=== PATIENT | male | born 1945 | race Caucasian/White ===

== ENCOUNTER 2025-06-05 13:38 | Emergency (ER) | payer OTHER, MEDICARE ==
[~2025-06-05] VITALS: Ht 167.6 cm; Wt 106.5 kg
--- NOTE | ~2025-06-05 | EKG ---
[facility] [address] [place], [place] [address] Draft EK completed, results pending confirmation PATIENT NAME: ELYSIA BRADSHAW Electrocardiogram DATE OF : 45 PHYSICIAN: PRELIMINARY REPORT #: [id number] REPORT IS CONFIDENTIAL AND NOT TO BE RELEASED WITHOUT AUTHORIZATION
[2025-06-05] MEDS ORDERED: ASPIRIN81 MG PO (14:10)
[2025-06-05] MEDS ORDERED: LIPITOR40 MG PO (14:10)
[2025-06-05] MEDS ORDERED: TORSEMIDE20 MG PO (14:10)
[2025-06-05] MEDS ORDERED: ALLOPURINOL100 MG PO (14:11)
[2025-06-05] MEDS ORDERED: METOPROLOL SUCC25 MG PO (14:11)
[2025-06-05] MEDS ORDERED: CALCITRIOL0.5 MCG PO (14:12)
[2025-06-05 14:20] LABS: BASOPHILS 0.5 % (0.2-1.2); EOSINOPHILS 1.7 % (0.8-7.0); LYMPHOCYTES 6.5 % (21.8-53.1); MCH 30.2 PG (25.7-32.2); MCHC 30.3 g/dL (32.3-36.5); MCV 99.7 fL (79.0-92.2); MONOCYTES 7.6 % (5.3-12.2); NEUTROPHILS 82.7 % (34.0-67.9); RBC 2.91 M/uL (4.63-6.08)
[2025-06-05 14:44] LABS: ALT (SGPT) 10.0 U/L (14-59); AST (SGOT) 10.0 U/L (15-37); GLOMERULAR FILTRATION RATE,EST 13.0 mL/min (>60); PROTEIN, TOTAL 6.8 g/dL (6.4-8.2); UREA NITROGEN 26.0 mg/dL (7-18)
--- OUTSIDE RECORDS SUMMARY | 2025-06-05 16:09 | XMS ---
PreManage Notification: ELYSIA BRADSHAW [employer] Events No recent Security Events currently on file CRITERIA MET - [facility] - 2 Visits in 30 Days CARE PROVIDERS There are no care providers on record at this time. [facility]age has no Care Guidelines for this patient. Bridget VISIT COUNT (12 MO.) [address] [facility] NOTE: Visits indicate total known visits. ED/C VISIT TRACKING (12 MO.) [facility] COMPLAINT: - SYNCOPE 06/04/2025 10:22 [facility] [place] TYPE: Emergency DIAGNOSES: - Other chest pain - Other specified abnormal findings of blood chemistry - CHEST PAIN 05/17/2025 10:17 [facility] [place] TYPE: Emergency DIAGNOSES: - End stage renal disease - Non-ST elevation (NSTEMI) myocardial infarction - CHEST TIGHTNESS SENT BY DR 06/06/2024 12:[address] [place] TYPE: Emergency DIAGNOSES: - Acute kidney failure, unspecified - Bacteremia - Chronic kidney disease, stage 5 - Other hydronephrosis - WEAKNESS NOT EATING INPATIENT VISIT TRACKING (12 MO.) 05/17/2025 15:14 [facility] ([facility]) TYPE: Intensive Care DIAGNOSES: - Anemia in chronic kidney disease - Atherosclerotic heart disease of [place] coronary artery without angina pectoris - Bradycardia, unspecified - Chronic kidney disease, stage 5 - Essential (primary) hypertension - Hypercalcemia - Localized edema - Malignant neoplasm of bladder, unspecified - Malignant neoplasm of prostate - Non-ST elevation (NSTEMI) myocardial infarction - Obstructive sleep apnea (adult) (pediatric) - Other disorders of phosphorus metabolism - Other specified disorders of kidney and ureter - Postprocedural hypotension - Presence of coronary angioplasty implant and graft - Type 2 diabetes mellitus with diabetic chronic kidney disease - Ventricular premature depolarization - ANGE - NSTEMI 06/07/2024 10:19 [facility] TYPE: General Medicine COMPLAINT: - Hydronephrosis DIAGNOSES: - Hydronephrosis with renal and ureteral calculous obstruction - Sepsis, unspecified organism - Sepsis, unspecified organism - Severe sepsis without septic shock [email or web address]
[2025-06-05] MEDS ORDERED: ZITHROMAX250 MG PO (16:12)
[2025-06-05] MEDS ORDERED: AUGMENTIN 500-1 EACH PO (16:12)
[2025-06-05] MEDS ORDERED: AMOXICILLIN/CLAVULANATE K 500 MG TAB PO ONE (16:15)
[2025-06-05] MEDS ORDERED: AZITHROMYCIN 250 MG TAB PO ONE (16:15)
[2025-06-05 16:22] VITALS: BP 154/53
== END 2025-06-05 16:22 | disposition home or self-care (01) ==
LOC: ED 13:38
PROVIDERS: Emergency Medicine
DX: J18.9 Pneumonia, unspecified organism (principal); Z79.82 Long term (current) use of aspirin; Z79.899 Other long term (current) drug therapy; Z88.5 Allergy status to narcotic agent; Z88.8 Allergy status to other drugs, medicaments and biological substances
CPT/HCPCS: 36415; 71045; 80053; 84484; 85025; 93005; 93010; 99284-25